=== PATIENT | female | born 2000 | race Caucasian/White ===

== ENCOUNTER 2021-04-21 10:05 | Emergency (ER) | payer OTHER, SELFPAY ==
[2021-04-21 10:15] VITALS: BP 118/71; PULSE 82; RESP 12; TEMP 36.8; O2SAT 100
--- NOTE | 2021-04-21 10:36 | ED.URI ---
HPI - URI/Sore Throat General Chief Complaint: Upper Respiratory Infection Stated Complaint: no voice/eye irritation/sinus issues/drainage Time Seen by Provider: 04/21/21 10:18 Source: patient and RN notes reviewed Mode of arrival: ambulatory Limitations: no limitations History of Present Illness HPI Narrative: Patient presents today with a 4-day history of postnasal drainage, nasal congestion, hoarse voice that progressively became absent. Yesterday she noted redness and drainage from both eyes. Denies sore throat, cough, fever. She has taken 1 dose of Mucinex and 1 dose of DayQuil without relief. States she has used some [id number] eyedrops yesterday, which did help with her eye symptoms. MD elicited complaint: nasal congestion Related Data Allergies Allergy/AdvReac Type Severity Reaction Status Date / Time No Known Allergies Allergy Verified 04/21/21 10:18 Review of Systems Review of Systems: CONSTITUTIONAL: Denies body aches, fever, chills, or sweats. EYES: Denies visual changes. + Bilateral eye redness and drainage ENT: Denies rhinorrhea, sore throat, or otalgia.+ Postnasal drip, nasal congestion, hoarse voice CARDIOVASCULAR: Denies chest pain, palpitations, or edema. RESPIRATORY: Denies cough or dyspnea. GASTROINTESTINAL: Denies abdominal pain, nausea, vomiting, or diarrhea. GENITOURINARY: Denies dysuria or hematuria. SKIN: Denies rash, itching, or wounds. MUSCULOSKELETAL: Denies back pain, joint pain, or myalgia. NEUROLOGIC: Denies headache, numbness, tingling, or weakness. PSYCH: Denies depression or anxiety. PMFSH Comments At time of signature, I have reviewed and agree with nursing past medical, surgical, social and family history unless otherwise noted. Please see nursing chart for further information. There is no relevant family history pertinent to the presenting complaint Exam Narrative: GENERAL: Well-appearing, well-nourished, and in no acute distress. HEAD: Normocephalic, atraumatic. EYES: EOMI. No redness or drainage. Bilateral injected conjunctivae. No active drainage. ENT: Mucous membranes pink and moist. Nares mildly congested. No rhinorrhea. TMs normal bilaterally. Throat normal. Uvula midline. Voice absent. NECK: Normal AROM. Supple. No lymphadenopathy. CHEST: No respiratory distress. Clear to auscultation. HEART: Regular rate and rhythm. No murmur appreciated. Normal peripheral pulses. EXTREMITIES: Normal range of motion. No edema. SKIN: Warm, dry, no rash. Capillary refill normal. Normal skin turgor. NEURO: No focal deficits. Alert and oriented x3. Gait steady. PSYCH: Normal affect. No signs of depression or anxiety. Course Vital Signs Vital signs: Vital Signs Temperature 98.2 F 04/21/21 10:15 Pulse Rate 82 04/21/21 10:15 Respiratory Rate 12 04/21/21 10:15 Blood Pressure 118/71 04/21/21 10:15 Pulse Oximetry 100 04/21/21 10:15 Temperature 98.2 F 04/21/21 10:15 Pulse Rate 82 04/21/21 10:15 Respiratory Rate 12 04/21/21 10:15 Blood Pressure 118/71 04/21/21 10:15 Pulse Oximetry 100 04/21/21 10:15 Reviewed MDM - URI/Sore Throat Differential Diagnosis Differential diagnosis: Likely upper respiratory infection, sinusitis, viral infection and other (Conjunctivitis, laryngitis) Critical Care Time Critical Care Time Critical Care Time: No Discharge Plan Discharge Clinical Impression: Laryngitis Upper respiratory infection Qualifiers: URI type: unspecified URI Qualified Code(s): J06.9 - Acute upper respiratory infection, unspecified Conjunctivitis Qualifiers: Conjunctivitis type: acute Acute conjunctivitis type: bacterial Laterality: bilateral Qualified Code(s): H10.33 - Unspecified acute conjunctivitis, bilateral Patient Disposition: Home, Self-Care Condition: Stable Instructions: Upper Respiratory Infection (DC), Conjunctivitis (ED) Additional Instructions: Your symptoms are likely due to a viral illness, which is n
== END 2021-04-21 10:56 | disposition home or self-care (01) ==
PROVIDERS: Emergency Provider Nurse Practitioner
DX: J04.0 Acute laryngitis (principal); J06.9 Acute upper respiratory infection, unspecified; H10.33 Unspecified acute conjunctivitis, bilateral
CPT/HCPCS: 99213; G0463